=== PATIENT | male | born 1950 | race Caucasian/White ===

== ENCOUNTER 2024-08-30 19:46 | Inpatient (IN) | payer MEDICARE, BC ==
[~2024-08-30] VITALS: Ht 182.9 cm; Wt 105.5 kg
[2024-08-30] MEDS: albuterol 2.5 MG/3 ML nebule NEB ONE (20:28)
[2024-08-30 20:29] VITALS: PULSE 78; RESP 14; O2SAT 93
[2024-08-30 20:33] LABS: BASOPHILS # (AUTO) 0.1 X10'3 (0-0.2); BASOPHILS % (AUTO) 0.6 % (0-1); EOSINOPHILS # (AUTO) 0.1 X10'3 (0-0.9); EOSINOPHILS % (AUTO) 0.6 % (0-6); HEMATOCRIT 40.3 % (42.0-52.0); HEMOGLOBIN 13.4 g/dl (14.0-17.9); LYMPHOCYTES # (AUTO) 0.7 X10'3 (1.1-4.8); LYMPHOCYTES % (AUTO) 5.6 % (21-51); MEAN CORPUSCULAR HEMOGLOBIN 29.2 PG (27.0-31.0); MEAN CORPUSCULAR HGB CONC 33.2 g/dL (33.0-36.5); MEAN CORPUSCULAR VOLUME 88.1 FL (78-98); MEAN PLATELET VOLUME 8.7 FL (7.4-10.4); MONOCYTES # (AUTO) 0.9 X10'3 (0-0.9); MONOCYTES % (AUTO) 7.2 % (2-12); NEUTROPHILS # (AUTO) 10.9 X10'3 (1.8-7.7); PLATELET COUNT 340 X10'3 (140-440); RED BLOOD COUNT 4.57 X10'6 (4.70-6.10); RED CELL DISTRIBUTION WIDTH 15.7 % (11.5-14.5); WHITE BLOOD COUNT 12.6 X10'3 (4.5-11.0)
[2024-08-30 20:35] VITALS: PULSE 80; RESP 12; O2SAT 95
[2024-08-30 21:01] LABS: ALANINE AMINOTRANSFERASE 30 U/L (12-78); ALBUMIN 3.1 G/DL (3.4-5.0); ALBUMIN/GLOBULIN RATIO 0.6 (1.1-1.5); ALKALINE PHOSPHATASE 112 IU/L (46-116); ANION GAP 9 (8-16); ASPARTATE AMINO TRANSFERASE 29 U/L (10-37); BILIRUBIN,TOTAL 0.7 MG/DL (0.1-1.0); BLOOD UREA NITROGEN 16 MG/DL (7-18); CALCIUM 9.5 MG/DL (8.5-10.1); CHLORIDE 102 MMOL/L (99-107); GLUCOSE 136 MG/DL (70-104); LIPASE 29 U/L (16-77); POTASSIUM 4.4 MMOL/L (3.5-5.1); SODIUM 139 MMOL/L (135-145); TOTAL CARBON DIOXIDE 28.2 MMOL/L (24-32); TOTAL PROTEIN 8.1 G/DL (6.4-8.2); eCRCL 36 ML/MIN; eGFR 33 ML/MIN
[2024-08-30] MEDS: HYDROmorphone 1 mg/ml syringe IV ONE (21:14)
[2024-08-30 21:19] LABS: MAGNESIUM 1.9 MG/DL (1.5-2.4)
[2024-08-30] MEDS: normal saline 1000ML IV soln IVB ONE ×2 (21:19→21:49)
[2024-08-30] MEDS: metoprolol tartrate 1mg/ml inj IV ONE ×2 (21:40→22:17)
[2024-08-30] MEDS: magnesium sulf-water 2g/50mL 50 ML IV ONE (21:48)
[2024-08-30] MEDS ORDERED: metoprolol tartrate 1mg/ml inj IV SCH (22:00)
[2024-08-30] MEDS ORDERED: magnesium sulf-water 2g/50mL 50 ML IV PRN (22:10)
[2024-08-30] MEDS: amiodarone 150mg/dext, iso-os 100 ML IV ONE ×2 (22:10→22:19)
[2024-08-30] MEDS ORDERED: potassium Cl 20 mEq SR tablet PO PRN ×2 (22:10)
[2024-08-30] MEDS ORDERED: magnesium hydroxide 30ml (MOM) UD suspension PO PRN (22:10)
[2024-08-30] MEDS ORDERED: potassium Cl 40MEQ/1/2NS 520ml 520 ML IV PRN (22:10)
[2024-08-30] MEDS ORDERED: magnesium Cl slow-release 64mg tablet PO PRN (22:10)
[2024-08-30] MEDS ORDERED: magnesium sulf-water 4G/100mL 100 ML IV PRN (22:10)
[2024-08-30] MEDS ORDERED: amiodarone/D5 360MG/200ML BAG 200 ML IV ONE (22:10)
[2024-08-30] MEDS ORDERED: acetaminophen 325mg tablet PO PRN (22:10)
[2024-08-30] MEDS ORDERED: mag hydrox/Alum hydrox/simeth 30ml oral suspension PO PRN (22:10)
[2024-08-30] MEDS: amiodarone/D5 360MG/200ML BAG 200 ML IV SCH (22:35)
[2024-08-30 22:37] LABS: PRO BRAIN NATRIURETIC PEPTIDE 2467 PG/ML (0-125)
[2024-08-30] MEDS: normal saline 1000ml 1,000 ML IV SCH (22:38)
[2024-08-30] MEDS ORDERED: DIF150T PO (23:28)
[2024-08-30] MEDS ORDERED: ALBU10.7 INH (23:28)
[2024-08-30] MEDS ORDERED: ALBU10.7 (23:28)
[2024-08-30] MEDS ORDERED: METO25TA6 PO (23:28)
[2024-08-30] MEDS ORDERED: AMLO-379 PO (23:28)
[2024-08-30] MEDS ORDERED: ATOR10TA70 PO (23:28)
[2024-08-30] MEDS ORDERED: FLEC100T PO (23:28)
[2024-08-30] MEDS ORDERED: QUET100T34 PO (23:28)
[2024-08-30 23:38] LABS: BILIRUBIN,URINE NEGATIVE (Neg); CLARITY,URINE CLEAR (Clear); COLOR,URINE YELLOW (Yellow); GLUCOSE, URINE NEGATIVE (Neg); KETONES,URINE TRACE mg/dl (Neg); LEUKOCYTE ESTERASE ,URINE NEGATIVE (Neg); NITRITES, URINE NEGATIVE (Neg); OCCULT BLOOD,URINE NEGATIVE (Neg); PROTEIN,URINE TRACE mg/dl (Neg); UROBILINOGEN,URINE 0.2 E.U/dL (0.2-1.0)
[2024-08-30 23:43] LABS: UA COLLECTION TYPE URINAL
[2024-08-30 23:44] LABS: BACTERIA,URINE FEW /HPF (Neg); MUCUS STRANDS FEW /LPF (Neg); SQUAMOUS EPITHELIAL CELL,UR FEW /LPF (FEW); TRANSITIONAL EPI CELLS,URINE FEW /HPF
[2024-08-30 23:45] LABS: CAL OXALATE CRYSTALS FEW /HPF (NEGATIVE); RBC,URINE 0-2 /HPF (0-2); WBC,URINE 0-4 /HPF (0-4)
[2024-08-31] VITALS (35 sets, daily range): BP systolic 125–175; BP diastolic 69–98; PULSE 61–87; RESP 12–25; TEMP 98–98.2; O2SAT 92–100
[2024-08-31] MEDS: CEFEPIME 2gm in D5W 50mL 50 ML IV SCH ×2 (01:25→13:23)
[2024-08-31] MEDS: morphine 2 MG/ML inj. syringe IV PRN (03:01)
[2024-08-31] MEDS: ondansetron/PF 4mg/2ml inj IV PRN (03:01)
[2024-08-31] MEDS: HYDROmorphone 1 mg/ml syringe IV ONE (03:29)
[2024-08-31] MEDS: proCHLORperazine 10 MG/2 ml inj IV ONE (03:54)
[2024-08-31] MEDS: metoclopramide 5 mg/ml inj IV ONE (04:23)
[2024-08-31] MEDS: LORazepam 2 mg/ml vial IV ONE (04:50)
[2024-08-31] MEDS ORDERED: sevoflurane 250ml liquid IH ONE (05:53)
[2024-08-31] MEDS ORDERED: fentaNYL /PF 50mcg/ml 5ml ampule ONE (05:57)
[2024-08-31] MEDS ORDERED: rocuronium 10mg/ml inj IV ONE (05:59)
[2024-08-31] MEDS ORDERED: propofol inj 20 ML IV ONE (05:59)
[2024-08-31] MEDS ORDERED: ceFOXitin 1000 MG inj ONE ×2 (06:36)
[2024-08-31] MEDS ORDERED: BUPIVAcaine 2.5mg/ml inj 50ml vial (contains preservative) ONE (07:04)
[2024-08-31] MEDS ORDERED: morphine 2 MG/ML inj. syringe IV PRN (07:15)
[2024-08-31] MEDS ORDERED: ringers solution, lacted 1,000 ML IV SCH (07:15)
[2024-08-31] MEDS ORDERED: proCHLORperazine 10 MG/2 ml inj IV PRN (07:15)
[2024-08-31] MEDS ORDERED: meperidine/PF 25mg/ml syringe IV PRN ×2 (07:15)
[2024-08-31] MEDS ORDERED: ondansetron/PF 4mg/2ml inj IV PRN ×2 (07:15→08:10)
[2024-08-31] MEDS ORDERED: glycopyrrolate 0.2mg/ml inj ONE (07:28)
[2024-08-31] MEDS ORDERED: neostigmine methylsulfate 1 MG/ML 10ml vial ONE (07:28)
[2024-08-31] MEDS: BUPIVAcaine 2.5mg/ml inj 50ml vial (contains preservative) IJ ONE (07:30)
[2024-08-31] MEDS: K and/or MAG REPLACEMENT MC SCH (08:00)
[2024-08-31] MEDS: docusate sod 100mg capsule PO SCH (08:00)
[2024-08-31] MEDS: enoxaparin 30mg/0.3ml syringe SQ SCH (08:00)
[2024-08-31] MEDS ORDERED: naloxone 0.4 mg/ml inj IV PRN (08:10)
[2024-08-31] MEDS: meperidine/PF 25mg/ml syringe IV PRN (09:10)
[2024-08-31] MEDS: morphine 4 MG/ML inj SYRINge IV PRN (09:14)
[2024-08-31 14:04] LABS: BASOPHILS # (AUTO) 0.1 X10'3 (0-0.2); EOSINOPHILS # (AUTO) 0.1 X10'3 (0-0.9); LYMPHOCYTES % (AUTO) 5.8 % (21-51); PLATELET COUNT 288 X10'3 (140-440)
[2024-08-31 14:06] LABS: BASOPHILS % (AUTO) 0.5 % (0-1); EOSINOPHILS % (AUTO) 0.8 % (0-6); HEMATOCRIT 40.2 % (42.0-52.0); HEMOGLOBIN 13.2 g/dl (14.0-17.9); MEAN CORPUSCULAR HEMOGLOBIN 29.2 PG (27.0-31.0); MEAN CORPUSCULAR HGB CONC 32.9 g/dL (33.0-36.5); MEAN CORPUSCULAR VOLUME 88.9 FL (78-98); MEAN PLATELET VOLUME 9.1 FL (7.4-10.4); MONOCYTES # (AUTO) 1.6 X10'3 (0-0.9); MONOCYTES % (AUTO) 9.2 % (2-12); NEUTROPHILS # (AUTO) 14.6 X10'3 (1.8-7.7); NEUTROPHILS % (AUTO) 83.7 % (42-75); RED BLOOD COUNT 4.53 X10'6 (4.70-6.10); RED CELL DISTRIBUTION WIDTH 15.5 % (11.5-14.5); WHITE BLOOD COUNT 17.5 X10'3 (4.5-11.0)
[2024-08-31 14:47] LABS: ALANINE AMINOTRANSFERASE 30 U/L (12-78); ALBUMIN 2.6 G/DL (3.4-5.0); ALBUMIN/GLOBULIN RATIO 0.6 (1.1-1.5); ALKALINE PHOSPHATASE 108 IU/L (46-116); ANION GAP 4 (8-16); ASPARTATE AMINO TRANSFERASE 40 U/L (10-37); BILIRUBIN,TOTAL 0.3 MG/DL (0.1-1.0); BLOOD UREA NITROGEN 17 MG/DL (7-18); BUN/CREATININE RATIO 8.2 (10.0-20.0); CALCIUM 8.4 MG/DL (8.5-10.1); CHLORIDE 105 MMOL/L (99-107); CREATININE 2.07 MG/DL (0.60-1.10); GLUCOSE 123 MG/DL (70-104); POTASSIUM 4.2 MMOL/L (3.5-5.1); SODIUM 138 MMOL/L (135-145); TOTAL CARBON DIOXIDE 28.9 MMOL/L (24-32); TOTAL PROTEIN 7.1 G/DL (6.4-8.2); eCRCL 35 ML/MIN; eGFR 32 ML/MIN
[2024-08-31] MEDS ORDERED: albuterol 2.5 MG/3 ML nebule NEB PRN (16:45)
[2024-08-31] MEDS ORDERED: fluconazole 150mg tablet PO SCH (16:45)
[2024-08-31] MEDS ORDERED: budesonide 0.5mg/2ml UD nebule IH PRN (17:15)
[2024-08-31] MEDS: chlordiazePOXIDE 25mg capsule PO ONE (18:42)
[2024-08-31] MEDS: LORazepam 2 mg/ml vial IV PRN (19:35)
[2024-08-31] MEDS: metoprolol tartrate 25mg tablet PO SCH (20:00)
[2024-08-31] MEDS: flecainide 50mg tablet PO SCH (20:00)
[2024-08-31] MEDS: quetiapine 100mg tablet PO SCH (21:00)
[2024-08-31] MEDS: thiamine 100mg/ml 2ml inj. IV SCH (22:30)
[2024-09-01] VITALS (10 sets, daily range): BP systolic 148–154; BP diastolic 72–95; PULSE 63–86; RESP 15–24; TEMP 97.6–98.2; O2SAT 94–98
[2024-09-01] MEDS: metoprolol tartrate 1mg/ml inj IV ONE (00:04)
[2024-09-01] MEDS: HYDROmorphone 1 mg/ml syringe IV PRN (02:06)
[2024-09-01 07:38] LABS: BASOPHILS # (AUTO) 0.1 X10'3 (0-0.2); BASOPHILS % (AUTO) 0.5 % (0-1); EOSINOPHILS # (AUTO) 0.2 X10'3 (0-0.9); EOSINOPHILS % (AUTO) 1.4 % (0-6); HEMATOCRIT 39.6 % (42.0-52.0); HEMOGLOBIN 12.7 g/dl (14.0-17.9); LYMPHOCYTES # (AUTO) 0.9 X10'3 (1.1-4.8); MEAN CORPUSCULAR HEMOGLOBIN 28.5 PG (27.0-31.0); MEAN CORPUSCULAR HGB CONC 32.2 g/dL (33.0-36.5); MEAN CORPUSCULAR VOLUME 88.7 FL (78-98); MEAN PLATELET VOLUME 8.7 FL (7.4-10.4); MONOCYTES # (AUTO) 1.5 X10'3 (0-0.9); MONOCYTES % (AUTO) 11.8 % (2-12); NEUTROPHILS # (AUTO) 10.1 X10'3 (1.8-7.7); NEUTROPHILS % (AUTO) 79.3 % (42-75); PLATELET COUNT 264 X10'3 (140-440); RED BLOOD COUNT 4.47 X10'6 (4.70-6.10); RED CELL DISTRIBUTION WIDTH 15.6 % (11.5-14.5); WHITE BLOOD COUNT 12.7 X10'3 (4.5-11.0)
[2024-09-01 07:48] LABS: INR 1.3 INR
[2024-09-01] MEDS: LORazepam 2 mg/ml vial IV PRN (08:04)
[2024-09-01] MEDS: multivitamins, therapeutics tablet PO SCH (08:04)
[2024-09-01] MEDS: losartan 50mg tablet PO SCH (08:05)
[2024-09-01] MEDS: amLODIPine 5mg tablet PO SCH (08:05)
[2024-09-01] MEDS: folic acid 1mg/0.2ml inj IV SCH (08:07)
[2024-09-01] MEDS: atorvastatin 10mg tablet PO SCH (08:07)
[2024-09-01 08:34] LABS: ALANINE AMINOTRANSFERASE 35 U/L (12-78); ALBUMIN 2.7 G/DL (3.4-5.0); ALBUMIN/GLOBULIN RATIO 0.6 (1.1-1.5); ALKALINE PHOSPHATASE 96 IU/L (46-116); AMYLASE 22 U/L (25-115); ANION GAP 8 (8-16); ASPARTATE AMINO TRANSFERASE 35 U/L (10-37); BILIRUBIN,TOTAL 0.6 MG/DL (0.1-1.0); BLOOD UREA NITROGEN 18 MG/DL (7-18); CALCIUM 8.3 MG/DL (8.5-10.1); CHLORIDE 104 MMOL/L (99-107); CREATININE 2.01 MG/DL (0.60-1.10); GLUCOSE 97 MG/DL (70-104); LIPASE 20 U/L (16-77); MAGNESIUM 1.7 MG/DL (1.5-2.4); PHOSPHORUS 3.2 MG/DL (2.3-4.5); POTASSIUM 3.8 MMOL/L (3.5-5.1); SODIUM 138 MMOL/L (135-145); TOTAL CARBON DIOXIDE 26.4 MMOL/L (24-32); TOTAL PROTEIN 7.2 G/DL (6.4-8.2); eCRCL 36 ML/MIN; eGFR 33 ML/MIN
[2024-09-01 09:10] LABS: SODIUM 142 MMOL/L (135-145)
[2024-09-01 09:12] LABS: OSMOLALITY 302 MOSM/K (280-300)
[2024-09-01] MEDS: chlordiazePOXIDE 25mg capsule PO SCH (10:44)
[2024-09-02] VITALS (10 sets, daily range): BP systolic 105–160; BP diastolic 60–67; PULSE 70–102; RESP 15–20; TEMP 97.5–98.3; O2SAT 92–100
[2024-09-02 08:05] LABS: INR 1.3 INR; PROTHROMBIN TIME 12.9 SECONDS (9.0-12.0)
[2024-09-02] MEDS: chlordiazePOXIDE 25mg capsule PO SCH (09:25)
[2024-09-02 09:33] LABS: BASOPHILS # (AUTO) 0.1 X10'3 (0-0.2); BASOPHILS % (AUTO) 0.5 % (0-1); EOSINOPHILS # (AUTO) 0.5 X10'3 (0-0.9); EOSINOPHILS % (AUTO) 4.3 % (0-6); HEMATOCRIT 39.6 % (42.0-52.0); HEMOGLOBIN 12.9 g/dl (14.0-17.9); LYMPHOCYTES # (AUTO) 0.8 X10'3 (1.1-4.8); LYMPHOCYTES % (AUTO) 7.5 % (21-51); MEAN CORPUSCULAR HEMOGLOBIN 28.9 PG (27.0-31.0); MEAN CORPUSCULAR HGB CONC 32.7 g/dL (33.0-36.5); MEAN CORPUSCULAR VOLUME 88.2 FL (78-98); MEAN PLATELET VOLUME 9.5 FL (7.4-10.4); MONOCYTES # (AUTO) 1.2 X10'3 (0-0.9); MONOCYTES % (AUTO) 11.4 % (2-12); NEUTROPHILS # (AUTO) 8.4 X10'3 (1.8-7.7); NEUTROPHILS % (AUTO) 76.3 % (42-75); PLATELET COUNT 212 X10'3 (140-440); RED BLOOD COUNT 4.49 X10'6 (4.70-6.10); RED CELL DISTRIBUTION WIDTH 15.8 % (11.5-14.5)
[2024-09-02 09:41] LABS: ALANINE AMINOTRANSFERASE 24 U/L (12-78); ALBUMIN 2.3 G/DL (3.4-5.0); ALBUMIN/GLOBULIN RATIO 0.5 (1.1-1.5); ALKALINE PHOSPHATASE 111 IU/L (46-116); AMYLASE 30 U/L (25-115); ANION GAP 7 (8-16); ASPARTATE AMINO TRANSFERASE 22 U/L (10-37); BILIRUBIN,TOTAL 0.6 MG/DL (0.1-1.0); BLOOD UREA NITROGEN 19 MG/DL (7-18); BUN/CREATININE RATIO 12.1 (10.0-20.0); CALCIUM 8.7 MG/DL (8.5-10.1); CHLORIDE 107 MMOL/L (99-107); CREATININE 1.57 MG/DL (0.60-1.10); GLUCOSE 72 MG/DL (70-104); LIPASE 57 U/L (16-77); MAGNESIUM 1.8 MG/DL (1.5-2.4); PHOSPHORUS 2.8 MG/DL (2.3-4.5); POTASSIUM 3.8 MMOL/L (3.5-5.1); SODIUM 142 MMOL/L (135-145); TOTAL CARBON DIOXIDE 28.4 MMOL/L (24-32); TOTAL PROTEIN 6.8 G/DL (6.4-8.2); eCRCL 46 ML/MIN; eGFR 44 ML/MIN
[2024-09-02] MEDS: dextrose 5%-1/2 normal saline 1,000 ML IV SCH (11:59)
[2024-09-02] MEDS ORDERED: heparin, porcine 5000 units/ml vial SQ SCH (14:15)
[2024-09-02] MEDS: haloperidol lactate 5mg/ml inj IM PRN (22:33)
[2024-09-02] MEDS: apixaban 5mg tablet PO SCH (22:37)
[2024-09-03] VITALS (10 sets, daily range): BP systolic 98–179; BP diastolic 50–79; PULSE 67–83; RESP 18–20; TEMP 97.6–98.6; O2SAT 93–100
[2024-09-03 06:52] LABS: BASOPHILS % (AUTO) 0.3 % (0-1); EOSINOPHILS % (AUTO) 0.3 % (0-6); HEMATOCRIT 32.4 % (42.0-52.0); HEMOGLOBIN 10.5 g/dl (14.0-17.9); LYMPHOCYTES # (AUTO) 0.3 X10'3 (1.1-4.8); LYMPHOCYTES % (AUTO) 3.5 % (21-51); MEAN CORPUSCULAR HGB CONC 32.4 g/dL (33.0-36.5); MEAN CORPUSCULAR VOLUME 89.5 FL (78-98); MEAN PLATELET VOLUME 9.4 FL (7.4-10.4); MONOCYTES # (AUTO) 0.9 X10'3 (0-0.9); MONOCYTES % (AUTO) 10.1 % (2-12); NEUTROPHILS % (AUTO) 85.8 % (42-75); PLATELET COUNT 187 X10'3 (140-440); RED BLOOD COUNT 3.62 X10'6 (4.70-6.10); RED CELL DISTRIBUTION WIDTH 15.6 % (11.5-14.5); WHITE BLOOD COUNT 9.3 X10'3 (4.5-11.0)
[2024-09-03 07:01] LABS: INR 1.3 INR; PROTHROMBIN TIME 12.9 SECONDS (9.0-12.0)
[2024-09-03 07:13] LABS: ALANINE AMINOTRANSFERASE 16 U/L (12-78); ALBUMIN 2.1 G/DL (3.4-5.0); ALBUMIN/GLOBULIN RATIO 0.5 (1.1-1.5); ALKALINE PHOSPHATASE 88 IU/L (46-116); AMYLASE 30 U/L (25-115); ANION GAP 5 (8-16); ASPARTATE AMINO TRANSFERASE 21 U/L (10-37); BILIRUBIN,TOTAL 0.3 MG/DL (0.1-1.0); BLOOD UREA NITROGEN 22 MG/DL (7-18); BUN/CREATININE RATIO 11.5 (10.0-20.0); CALCIUM 8.2 MG/DL (8.5-10.1); CHLORIDE 105 MMOL/L (99-107); CREATININE 1.91 MG/DL (0.60-1.10); GLUCOSE 202 MG/DL (70-104); LIPASE 32 U/L (16-77); MAGNESIUM 1.9 MG/DL (1.5-2.4); PHOSPHORUS 5.7 MG/DL (2.3-4.5); POTASSIUM 4.2 MMOL/L (3.5-5.1); SODIUM 138 MMOL/L (135-145); TOTAL CARBON DIOXIDE 28.4 MMOL/L (24-32); TOTAL PROTEIN 6.2 G/DL (6.4-8.2); eCRCL 38 ML/MIN; eGFR 35 ML/MIN
[2024-09-03] MEDS: heparin, porcine 5000 units/ml vial SQ SCH ×2 (09:24→16:55)
[2024-09-03] MEDS ORDERED: acetaminophen 325mg tablet NG PRN (15:16)
[2024-09-03] MEDS ORDERED: magnesium hydroxide 30ml (MOM) UD suspension NG PRN (15:18)
[2024-09-03] MEDS ORDERED: mag hydrox/Alum hydrox/simeth 30ml oral suspension NG PRN (15:18)
[2024-09-03 15:57] LABS: PREALBUMIN 9.9 MG/DL (19-36)
[2024-09-03] MEDS: chlordiazePOXIDE 25mg capsule NG SCH (16:55)
[2024-09-03] MEDS: dextrose 5%-1/2 normal saline 1,000 ML IV SCH (16:55)
[2024-09-03] MEDS: docusate sodium 100mg/10ml UD cup NG SCH (20:49)
[2024-09-03] MEDS: flecainide 50mg tablet NG SCH (20:50)
[2024-09-03] MEDS: metoprolol tartrate 25mg tablet NG SCH (20:51)
[2024-09-03] MEDS: nystatin 15 GM powder TP SCH (21:09)
[2024-09-04] VITALS (12 sets, daily range): BP systolic 98–172; BP diastolic 57–109; PULSE 58–136; RESP 15–27; TEMP 97.2–98.5; O2SAT 94–98
[2024-09-04] MEDS: HYDROcodone/acetaminophen 10/325mg tab PO ONE (02:02)
[2024-09-04 07:35] LABS: INR 1.3 INR; PROTHROMBIN TIME 13.6 SECONDS (9.0-12.0)
[2024-09-04] MEDS: losartan 50mg tablet NG SCH (07:45)
[2024-09-04] MEDS: atorvastatin 10mg tablet NG SCH (07:45)
[2024-09-04] MEDS: thiamine 100mg tablet NG SCH (07:45)
[2024-09-04] MEDS: amLODIPine 5mg tablet NG SCH (07:45)
[2024-09-04] MEDS: chlordiazePOXIDE 25mg capsule NG SCH (07:46)
[2024-09-04 07:47] LABS: ALANINE AMINOTRANSFERASE 15 U/L (12-78); ALBUMIN 1.9 G/DL (3.4-5.0); ALBUMIN/GLOBULIN RATIO 0.5 (1.1-1.5); ALKALINE PHOSPHATASE 80 IU/L (46-116); AMYLASE 25 U/L (25-115); ANION GAP 5 (8-16); ASPARTATE AMINO TRANSFERASE 24 U/L (10-37); BILIRUBIN,TOTAL 0.3 MG/DL (0.1-1.0); BLOOD UREA NITROGEN 18 MG/DL (7-18); BUN/CREATININE RATIO 12.4 (10.0-20.0); CALCIUM 8.1 MG/DL (8.5-10.1); CHLORIDE 106 MMOL/L (99-107); CREATININE 1.45 MG/DL (0.60-1.10); GLUCOSE 89 MG/DL (70-104); LIPASE 30 U/L (16-77); MAGNESIUM 1.6 MG/DL (1.5-2.4); PHOSPHORUS 1.9 MG/DL (2.3-4.5); POTASSIUM 3.2 MMOL/L (3.5-5.1); SODIUM 139 MMOL/L (135-145); TOTAL CARBON DIOXIDE 27.8 MMOL/L (24-32); TOTAL PROTEIN 6.1 G/DL (6.4-8.2); eCRCL 50 ML/MIN; eGFR 48 ML/MIN
[2024-09-04 08:08] LABS: BASOPHILS % (AUTO) 0.7 % (0-1); EOSINOPHILS # (AUTO) 0.6 X10'3 (0-0.9); EOSINOPHILS % (AUTO) 8.7 % (0-6); HEMATOCRIT 32.2 % (42.0-52.0); HEMOGLOBIN 10.6 g/dl (14.0-17.9); LYMPHOCYTES % (AUTO) 15.6 % (21-51); MEAN CORPUSCULAR HEMOGLOBIN 28.9 PG (27.0-31.0); MEAN CORPUSCULAR HGB CONC 32.9 g/dL (33.0-36.5); MEAN CORPUSCULAR VOLUME 87.7 FL (78-98); MEAN PLATELET VOLUME 9.8 FL (7.4-10.4); MONOCYTES # (AUTO) 0.7 X10'3 (0-0.9); MONOCYTES % (AUTO) 10.7 % (2-12); NEUTROPHILS # (AUTO) 4.1 X10'3 (1.8-7.7); NEUTROPHILS % (AUTO) 64.3 % (42-75); PLATELET COUNT 203 X10'3 (140-440); RED BLOOD COUNT 3.67 X10'6 (4.70-6.10); RED CELL DISTRIBUTION WIDTH 15.7 % (11.5-14.5); WHITE BLOOD COUNT 6.3 X10'3 (4.5-11.0)
[2024-09-04] MEDS: LORazepam 2 mg/ml vial IV PRN (12:10)
[2024-09-04 12:29] LABS: URINE AMPHETAMINE SCREEN NEGATIVE (Neg); URINE BARBITUATE SCREEN NEGATIVE (Neg); URINE BENZODIAZEPINES SCREEN POSITIVE (Neg); URINE CANNABINOID SCREEN NEGATIVE (Neg); URINE COCAINE SCREEN NEGATIVE (Neg); URINE METHADONE SCREEN NEGATIVE (Neg); URINE OPIATE SCREEN POSITIVE (Neg); URINE PHENCYCLIDINE SCREEN NEGATIVE (Neg)
[2024-09-04] MEDS ORDERED: potassium Cl 40MEQ/1/2NS 520ml 520 ML IV PRN (15:10)
[2024-09-04] MEDS: Neutra Phos packet PO SCH (16:45)
[2024-09-04] MEDS: HYDROmorphone inj. 0.5 MG/0.5 ML DISP.SYRIN IV ONE (16:45)
[2024-09-04] MEDS: potassium Cl 20 mEq SR tablet PO PRN ×2 (16:45→20:38)
[2024-09-04] MEDS ORDERED: amiodarone 50MG/ML inj IV ONE (17:25)
[2024-09-04] MEDS: amiodarone 150mg/dext, iso-os 100 ML IV ONE (17:36)
[2024-09-04] MEDS ORDERED: amiodarone inj. 450 MG in dextrose 5%-water 241 ML IV SCH (17:40)
[2024-09-04] MEDS ORDERED: iohexol 350MG/ML 100ml bottle IV ONE (19:03)
[2024-09-04] MEDS ORDERED: sodium phosphate inj. 30 MMOL in dextrose 5%-water 250 ML IV PRN (19:50)
[2024-09-04] MEDS ORDERED: sodium phosphate inj. 15 MMOL in dextrose 5%-water 250 ML IV PRN (19:50)
[2024-09-04] MEDS ORDERED: Neutra Phos packet PO PRN (19:50)
[2024-09-04] MEDS ORDERED: chlordiazePOXIDE 5mg capsule NG SCH (20:00)
[2024-09-04] MEDS: amiodarone/D5 360MG/200ML BAG 250 ML IV SCH (20:24)
[2024-09-05] VITALS (14 sets, daily range): BP systolic 101–194; BP diastolic 67–95; PULSE 60–79; RESP 16–37; TEMP 97.9–99.2; O2SAT 95–99
[2024-09-05] MEDS: hydrALAZINE 20mg/ml inj. IV PRN (02:12)
[2024-09-05 07:26] LABS: INR 1.5 INR; PROTHROMBIN TIME 15.1 SECONDS (9.0-12.0)
[2024-09-05 07:42] LABS: BASOPHILS # (AUTO) 0.1 X10'3 (0-0.2); BASOPHILS % (AUTO) 0.7 % (0-1); EOSINOPHILS # (AUTO) 0.4 X10'3 (0-0.9); EOSINOPHILS % (AUTO) 3.9 % (0-6); HEMATOCRIT 38.9 % (42.0-52.0); HEMOGLOBIN 12.8 g/dl (14.0-17.9); LYMPHOCYTES # (AUTO) 1.1 X10'3 (1.1-4.8); LYMPHOCYTES % (AUTO) 11.9 % (21-51); MEAN CORPUSCULAR HEMOGLOBIN 28.6 PG (27.0-31.0); MEAN CORPUSCULAR VOLUME 86.8 FL (78-98); MEAN PLATELET VOLUME 9.5 FL (7.4-10.4); MONOCYTES # (AUTO) 1.1 X10'3 (0-0.9); NEUTROPHILS # (AUTO) 6.7 X10'3 (1.8-7.7); NEUTROPHILS % (AUTO) 71.5 % (42-75); PLATELET COUNT 289 X10'3 (140-440); RED BLOOD COUNT 4.48 X10'6 (4.70-6.10); RED CELL DISTRIBUTION WIDTH 15.3 % (11.5-14.5); WHITE BLOOD COUNT 9.4 X10'3 (4.5-11.0)
[2024-09-05] MEDS: folic acid 1mg tablet NG SCH (07:46)
[2024-09-05 07:52] LABS: ALANINE AMINOTRANSFERASE 28 U/L (12-78); ALBUMIN 2.5 G/DL (3.4-5.0); ALBUMIN/GLOBULIN RATIO 0.5 (1.1-1.5); ALKALINE PHOSPHATASE 95 IU/L (46-116); AMYLASE 25 U/L (25-115); ANION GAP 7 (8-16); ASPARTATE AMINO TRANSFERASE 35 U/L (10-37); BILIRUBIN,TOTAL 0.3 MG/DL (0.1-1.0); BLOOD UREA NITROGEN 11 MG/DL (7-18); CALCIUM 8.5 MG/DL (8.5-10.1); CHLORIDE 102 MMOL/L (99-107); CREATININE 1.38 MG/DL (0.60-1.10); GLUCOSE 131 MG/DL (70-104); LIPASE 35 U/L (16-77); MAGNESIUM 1.6 MG/DL (1.5-2.4); PHOSPHORUS 2.1 MG/DL (2.3-4.5); POTASSIUM 3.4 MMOL/L (3.5-5.1); SODIUM 139 MMOL/L (135-145); TOTAL CARBON DIOXIDE 29.9 MMOL/L (24-32); TOTAL PROTEIN 7.2 G/DL (6.4-8.2); eCRCL 52 ML/MIN; eGFR 51 ML/MIN
[2024-09-05] MEDS: normal saline 1000ml 1,000 ML IV ONE (11:14)
[2024-09-05] MEDS ORDERED: Neutra Phos packet NG PRN (17:28)
[2024-09-05] MEDS ORDERED: POTASSIUM CHLORIDE 20 MEQ/15 ML oral solution NG PRN (17:29)
[2024-09-05] MEDS: Neutra Phos packet NG SCH (20:50)
[2024-09-05] MEDS: POTASSIUM CHLORIDE 20 MEQ/15 ML oral solution NG PRN (21:20)
[2024-09-06] VITALS (10 sets, daily range): BP systolic 114–183; BP diastolic 57–96; PULSE 70–79; RESP 17–21; TEMP 97.6–98.7; O2SAT 95–99
[2024-09-06] MEDS ORDERED: hydrALAZINE 20mg/ml inj. IV ONE (04:00)
[2024-09-06] MEDS: hydrALAZINE 20mg/ml inj. IV PRN (04:46)
[2024-09-06 06:50] LABS: BASOPHILS # (AUTO) 0.1 X10'3 (0-0.2); BASOPHILS % (AUTO) 0.8 % (0-1); EOSINOPHILS # (AUTO) 0.5 X10'3 (0-0.9); EOSINOPHILS % (AUTO) 4.5 % (0-6); HEMATOCRIT 37.2 % (42.0-52.0); HEMOGLOBIN 12.3 g/dl (14.0-17.9); LYMPHOCYTES # (AUTO) 1.2 X10'3 (1.1-4.8); LYMPHOCYTES % (AUTO) 11.6 % (21-51); MEAN CORPUSCULAR HEMOGLOBIN 28.5 PG (27.0-31.0); MEAN CORPUSCULAR VOLUME 86.3 FL (78-98); MEAN PLATELET VOLUME 9.9 FL (7.4-10.4); MONOCYTES # (AUTO) 1.2 X10'3 (0-0.9); MONOCYTES % (AUTO) 11.8 % (2-12); NEUTROPHILS # (AUTO) 7.4 X10'3 (1.8-7.7); NEUTROPHILS % (AUTO) 71.3 % (42-75); PLATELET COUNT 267 X10'3 (140-440); RED BLOOD COUNT 4.31 X10'6 (4.70-6.10); RED CELL DISTRIBUTION WIDTH 15.1 % (11.5-14.5); WHITE BLOOD COUNT 10.5 X10'3 (4.5-11.0)
[2024-09-06 07:36] LABS: PREALBUMIN 11.3 MG/DL (19-36)
[2024-09-06] MEDS: amLODIPine 5mg tablet NG SCH (08:49)
[2024-09-06] MEDS: MULTIVIT-MIN/FERROUS GLUCONATE 9 MG/15 ML LIQUID NG SCH (08:49)
[2024-09-06] MEDS: HYDROcodone/acetaminophen 5mg/325mg tablet PO PRN (08:50)
[2024-09-06 09:17] LABS: ALANINE AMINOTRANSFERASE 27 U/L (12-78); ALBUMIN 2.4 G/DL (3.4-5.0); ALBUMIN/GLOBULIN RATIO 0.5 (1.1-1.5); ALKALINE PHOSPHATASE 92 IU/L (46-116); ANION GAP 9 (8-16); ASPARTATE AMINO TRANSFERASE 33 U/L (10-37); BILIRUBIN,TOTAL 0.5 MG/DL (0.1-1.0); BLOOD UREA NITROGEN 8 MG/DL (7-18); BUN/CREATININE RATIO 6.3 (10.0-20.0); CALCIUM 8.7 MG/DL (8.5-10.1); CHLORIDE 105 MMOL/L (99-107); CREATININE 1.26 MG/DL (0.60-1.10); GLUCOSE 106 MG/DL (70-104); POTASSIUM 3.5 MMOL/L (3.5-5.1); SODIUM 142 MMOL/L (135-145); TOTAL CARBON DIOXIDE 28.4 MMOL/L (24-32); eCRCL 57 ML/MIN; eGFR 56 ML/MIN
[2024-09-06] MEDS: metoclopramide 5 mg/ml inj IV ONE (10:29)
[2024-09-06] MEDS: nystatin 15 GM powder TP SCH (13:25)
[2024-09-06] MEDS ORDERED: HYDROcodone/acetaminophen 7.5MG/325MG per 15ml UD CUP PO PRN (14:33)
[2024-09-07] VITALS (10 sets, daily range): BP systolic 131–171; BP diastolic 36–87; PULSE 65–79; RESP 12–24; TEMP 97.3–97.9; O2SAT 95–100
[2024-09-07 07:18] LABS: BASOPHILS % (AUTO) 0.3 % (0-1); EOSINOPHILS # (AUTO) 0.4 X10'3 (0-0.9); EOSINOPHILS % (AUTO) 4.2 % (0-6); HEMATOCRIT 37.2 % (42.0-52.0); HEMOGLOBIN 12.5 g/dl (14.0-17.9); LYMPHOCYTES # (AUTO) 0.9 X10'3 (1.1-4.8); LYMPHOCYTES % (AUTO) 9.5 % (21-51); MEAN CORPUSCULAR HEMOGLOBIN 29.1 PG (27.0-31.0); MEAN CORPUSCULAR HGB CONC 33.6 g/dL (33.0-36.5); MEAN CORPUSCULAR VOLUME 86.6 FL (78-98); MEAN PLATELET VOLUME 9.9 FL (7.4-10.4); MONOCYTES # (AUTO) 1.1 X10'3 (0-0.9); MONOCYTES % (AUTO) 11.7 % (2-12); NEUTROPHILS # (AUTO) 7.3 X10'3 (1.8-7.7); NEUTROPHILS % (AUTO) 74.3 % (42-75); PLATELET COUNT 285 X10'3 (140-440); RED CELL DISTRIBUTION WIDTH 15.3 % (11.5-14.5); WHITE BLOOD COUNT 9.8 X10'3 (4.5-11.0)
[2024-09-07 08:29] LABS: ALANINE AMINOTRANSFERASE 23 U/L (12-78); ALBUMIN 2.4 G/DL (3.4-5.0); ALBUMIN/GLOBULIN RATIO 0.5 (1.1-1.5); ALKALINE PHOSPHATASE 86 IU/L (46-116); ANION GAP 6 (8-16); ASPARTATE AMINO TRANSFERASE 31 U/L (10-37); BILIRUBIN,TOTAL 0.5 MG/DL (0.1-1.0); BLOOD UREA NITROGEN 12 MG/DL (7-18); BUN/CREATININE RATIO 9.1 (10.0-20.0); CALCIUM 8.6 MG/DL (8.5-10.1); CHLORIDE 101 MMOL/L (99-107); CREATININE 1.32 MG/DL (0.60-1.10); GLUCOSE 145 MG/DL (70-104); POTASSIUM 3.5 MMOL/L (3.5-5.1); SODIUM 138 MMOL/L (135-145); TOTAL CARBON DIOXIDE 30.6 MMOL/L (24-32); eCRCL 55 ML/MIN; eGFR 53 ML/MIN
[2024-09-07] MEDS: HYDROcodone/acetaminophen 7.5MG/325MG per 15ml UD CUP NG PRN (08:40)
[2024-09-07] MEDS: lactulose 20gm/30ml cup PO SCH (15:35)
[2024-09-07] MEDS: apixaban 5mg tablet PO SCH (20:27)
[2024-09-08 02:00] VITALS: BP_SYST 144; BP_SYST 165; BP_DIAS 67; BP_DIAS 74; PULSE 73; RESP 17; TEMP 97.7; O2SAT 97
[2024-09-08 06:30] VITALS: O2SAT 95
[2024-09-08 08:00] VITALS: BP 105/52; PULSE 60; RESP 18; TEMP 98; O2SAT 97
[2024-09-08 08:02] LABS: BASOPHILS % (AUTO) 0.5 % (0-1); EOSINOPHILS # (AUTO) 0.6 X10'3 (0-0.9); EOSINOPHILS % (AUTO) 6.8 % (0-6); HEMATOCRIT 35.3 % (42.0-52.0); HEMOGLOBIN 11.8 g/dl (14.0-17.9); MEAN CORPUSCULAR HEMOGLOBIN 29.2 PG (27.0-31.0); MEAN CORPUSCULAR HGB CONC 33.5 g/dL (33.0-36.5); MEAN CORPUSCULAR VOLUME 87.1 FL (78-98); MEAN PLATELET VOLUME 9.7 FL (7.4-10.4); MONOCYTES # (AUTO) 1.3 X10'3 (0-0.9); MONOCYTES % (AUTO) 15.2 % (2-12); NEUTROPHILS # (AUTO) 5.8 X10'3 (1.8-7.7); NEUTROPHILS % (AUTO) 66.5 % (42-75); PLATELET COUNT 284 X10'3 (140-440); RED BLOOD COUNT 4.05 X10'6 (4.70-6.10); RED CELL DISTRIBUTION WIDTH 15.5 % (11.5-14.5); WHITE BLOOD COUNT 8.8 X10'3 (4.5-11.0)
[2024-09-08 08:17] LABS: ALANINE AMINOTRANSFERASE 23 U/L (12-78); ALBUMIN 2.3 G/DL (3.4-5.0); ALBUMIN/GLOBULIN RATIO 0.5 (1.1-1.5); ALKALINE PHOSPHATASE 78 IU/L (46-116); ANION GAP 3 (8-16); ASPARTATE AMINO TRANSFERASE 30 U/L (10-37); BILIRUBIN,TOTAL 0.4 MG/DL (0.1-1.0); BLOOD UREA NITROGEN 16 MG/DL (7-18); BUN/CREATININE RATIO 11.9 (10.0-20.0); CALCIUM 8.5 MG/DL (8.5-10.1); CHLORIDE 105 MMOL/L (99-107); CREATININE 1.35 MG/DL (0.60-1.10); GLUCOSE 131 MG/DL (70-104); POTASSIUM 3.8 MMOL/L (3.5-5.1); SODIUM 142 MMOL/L (135-145); TOTAL CARBON DIOXIDE 34.3 MMOL/L (24-32); TOTAL PROTEIN 6.6 G/DL (6.4-8.2); eCRCL 53 ML/MIN; eGFR 52 ML/MIN
[2024-09-08 08:22] LABS: ABG HCO3 32.3 mmol/L (21.0-28.0); ABG OXYGEN SATURATION 96.6 % (94.0-98.0); ABG PCO2 (T) 43.2 mmHg (35.0-48.0); ABG PH (T) 7.491 (7.350-7.450); ABG PO2 (T) 79.1 mmHg (83.0-108.0); ALLEN'S TEST POSITIVE; FCOHb 0.3 % (0.5-1.5); FHHb 3.4 % (0.0-5.0); FLOW 2 L/min; FMetHb 0.3 % (0.0-1.5); MODE NC; PATIENT TEMPERATURE 36.7; TOTAL HEMOGLOBIN 13.2 G/dl (13.5-17.5)
[2024-09-08 08:30] VITALS: RESP 18; O2SAT 97
[2024-09-08 08:53] LABS: HIV ANTIBODY 1&2 RAPID NON-REACTIVE (Neg)
[2024-09-08 08:57] LABS: URINE AMPHETAMINE SCREEN NEGATIVE (Neg); URINE BARBITUATE SCREEN NEGATIVE (Neg); URINE BENZODIAZEPINES SCREEN POSITIVE (Neg); URINE CANNABINOID SCREEN NEGATIVE (Neg); URINE COCAINE SCREEN NEGATIVE (Neg); URINE METHADONE SCREEN NEGATIVE (Neg); URINE OPIATE SCREEN POSITIVE (Neg); URINE PHENCYCLIDINE SCREEN NEGATIVE (Neg)
[2024-09-08 18:00] VITALS: BP_SYST 105; BP_SYST 140; BP_DIAS 52; BP_DIAS 64; PULSE 56; PULSE 66; RESP 16; RESP 19; TEMP 97.8; TEMP 98.6; O2SAT 96; O2SAT 98
[2024-09-08 22:00] VITALS: BP 130/71; PULSE 56; RESP 16; TEMP 98.6; O2SAT 96
[2024-09-09] VITALS (11 sets, daily range): BP systolic 144–155; BP diastolic 65–85; PULSE 57–135; RESP 10–22; TEMP 97.8–98.6; O2SAT 95–99
[2024-09-09 06:09] LABS: BASOPHILS # (AUTO) 0.1 X10'3 (0-0.2); BASOPHILS % (AUTO) 0.9 % (0-1); EOSINOPHILS # (AUTO) 0.7 X10'3 (0-0.9); EOSINOPHILS % (AUTO) 8.3 % (0-6); HEMATOCRIT 36.2 % (42.0-52.0); HEMOGLOBIN 11.9 g/dl (14.0-17.9); LYMPHOCYTES # (AUTO) 1.4 X10'3 (1.1-4.8); LYMPHOCYTES % (AUTO) 16.6 % (21-51); MEAN CORPUSCULAR HEMOGLOBIN 28.6 PG (27.0-31.0); MEAN CORPUSCULAR HGB CONC 32.8 g/dL (33.0-36.5); MEAN CORPUSCULAR VOLUME 87.3 FL (78-98); MEAN PLATELET VOLUME 9.9 FL (7.4-10.4); MONOCYTES # (AUTO) 1.1 X10'3 (0-0.9); MONOCYTES % (AUTO) 13.9 % (2-12); NEUTROPHILS % (AUTO) 60.3 % (42-75); PLATELET COUNT 280 X10'3 (140-440); RED BLOOD COUNT 4.15 X10'6 (4.70-6.10); RED CELL DISTRIBUTION WIDTH 15.9 % (11.5-14.5); WHITE BLOOD COUNT 8.3 X10'3 (4.5-11.0)
[2024-09-09 06:11] LABS: ALANINE AMINOTRANSFERASE 24 U/L (12-78); ALBUMIN 2.4 G/DL (3.4-5.0); ALBUMIN/GLOBULIN RATIO 0.5 (1.1-1.5); ALKALINE PHOSPHATASE 81 IU/L (46-116); ANION GAP 4 (8-16); ASPARTATE AMINO TRANSFERASE 26 U/L (10-37); BILIRUBIN,TOTAL 0.4 MG/DL (0.1-1.0); BLOOD UREA NITROGEN 16 MG/DL (7-18); BUN/CREATININE RATIO 12.8 (10.0-20.0); CALCIUM 8.6 MG/DL (8.5-10.1); CHLORIDE 105 MMOL/L (99-107); CREATININE 1.25 MG/DL (0.60-1.10); GLUCOSE 121 MG/DL (70-104); SODIUM 142 MMOL/L (135-145); TOTAL CARBON DIOXIDE 33.1 MMOL/L (24-32); TOTAL PROTEIN 6.9 G/DL (6.4-8.2); eCRCL 58 ML/MIN; eGFR 57 ML/MIN
[2024-09-09] MEDS ORDERED: albuterol 2.5 MG/3 ML nebule NEB PRN (13:55)
[2024-09-10] VITALS (18 sets, daily range): BP systolic 97–169; BP diastolic 66–87; PULSE 55–117; RESP 16–20; TEMP 97.7–98.3; O2SAT 91–100
[2024-09-10 06:39] LABS: BASOPHILS # (AUTO) 0.1 X10'3 (0-0.2); EOSINOPHILS # (AUTO) 0.7 X10'3 (0-0.9); EOSINOPHILS % (AUTO) 7.9 % (0-6); HEMATOCRIT 37.4 % (42.0-52.0); HEMOGLOBIN 12.2 g/dl (14.0-17.9); LYMPHOCYTES # (AUTO) 1.3 X10'3 (1.1-4.8); LYMPHOCYTES % (AUTO) 13.9 % (21-51); MEAN CORPUSCULAR HEMOGLOBIN 28.3 PG (27.0-31.0); MEAN CORPUSCULAR HGB CONC 32.5 g/dL (33.0-36.5); MEAN CORPUSCULAR VOLUME 87.1 FL (78-98); MEAN PLATELET VOLUME 9.4 FL (7.4-10.4); MONOCYTES # (AUTO) 1.3 X10'3 (0-0.9); MONOCYTES % (AUTO) 13.7 % (2-12); NEUTROPHILS # (AUTO) 5.9 X10'3 (1.8-7.7); NEUTROPHILS % (AUTO) 63.5 % (42-75); PLATELET COUNT 257 X10'3 (140-440); WHITE BLOOD COUNT 9.2 X10'3 (4.5-11.0)
[2024-09-10 06:47] LABS: ALANINE AMINOTRANSFERASE 29 U/L (12-78); ALBUMIN 2.7 G/DL (3.4-5.0); ALBUMIN/GLOBULIN RATIO 0.6 (1.1-1.5); ALKALINE PHOSPHATASE 80 IU/L (46-116); ANION GAP 3 (8-16); ASPARTATE AMINO TRANSFERASE 34 U/L (10-37); BILIRUBIN,TOTAL 0.5 MG/DL (0.1-1.0); BLOOD UREA NITROGEN 17 MG/DL (7-18); BUN/CREATININE RATIO 13.2 (10.0-20.0); CALCIUM 8.8 MG/DL (8.5-10.1); CHLORIDE 101 MMOL/L (99-107); CREATININE 1.29 MG/DL (0.60-1.10); GLUCOSE 104 MG/DL (70-104); POTASSIUM 4.2 MMOL/L (3.5-5.1); PREALBUMIN 16.6 MG/DL (19-36); SODIUM 139 MMOL/L (135-145); TOTAL CARBON DIOXIDE 35.2 MMOL/L (24-32); TOTAL PROTEIN 7.2 G/DL (6.4-8.2); eCRCL 56 ML/MIN; eGFR 55 ML/MIN
[2024-09-10] MEDS ORDERED: amiodarone 50MG/ML inj IV ONE (09:00)
[2024-09-10] MEDS ORDERED: amiodarone inj. 450 MG in dextrose 5%-water 241 ML IV SCH (09:00)
[2024-09-10] MEDS: amiodarone 150mg/dext, iso-os 100 ML IV ONE (10:39)
[2024-09-10] MEDS: amiodarone/D5 360MG/200ML BAG 200 ML IV SCH (11:16)
[2024-09-11] VITALS (12 sets, daily range): BP systolic 105–138; BP diastolic 47–68; PULSE 52–63; RESP 15–21; TEMP 96.7–98.6; O2SAT 92–100
[2024-09-11] MEDS: LORazepam 2 mg/ml vial IV ONE (05:09)
[2024-09-11 07:45] LABS: ALANINE AMINOTRANSFERASE 40 U/L (12-78); ALBUMIN 2.6 G/DL (3.4-5.0); ALBUMIN/GLOBULIN RATIO 0.6 (1.1-1.5); ALKALINE PHOSPHATASE 76 IU/L (46-116); ANION GAP 4 (8-16); ASPARTATE AMINO TRANSFERASE 43 U/L (10-37); BILIRUBIN,TOTAL 0.4 MG/DL (0.1-1.0); BLOOD UREA NITROGEN 18 MG/DL (7-18); BUN/CREATININE RATIO 12.6 (10.0-20.0); CALCIUM 8.5 MG/DL (8.5-10.1); CHLORIDE 101 MMOL/L (99-107); CREATININE 1.43 MG/DL (0.60-1.10); GLUCOSE 95 MG/DL (70-104); POTASSIUM 4.1 MMOL/L (3.5-5.1); SODIUM 139 MMOL/L (135-145); TOTAL CARBON DIOXIDE 33.7 MMOL/L (24-32); TOTAL PROTEIN 6.8 G/DL (6.4-8.2); eCRCL 51 ML/MIN; eGFR 48 ML/MIN
[2024-09-11 08:35] LABS: BASOPHILS # (AUTO) 0.1 X10'3 (0-0.2); EOSINOPHILS # (AUTO) 0.6 X10'3 (0-0.9); EOSINOPHILS % (AUTO) 6.8 % (0-6); HEMATOCRIT 37.3 % (42.0-52.0); HEMOGLOBIN 12.2 g/dl (14.0-17.9); LYMPHOCYTES # (AUTO) 1.3 X10'3 (1.1-4.8); LYMPHOCYTES % (AUTO) 13.4 % (21-51); MEAN CORPUSCULAR HEMOGLOBIN 28.7 PG (27.0-31.0); MEAN CORPUSCULAR HGB CONC 32.6 g/dL (33.0-36.5); MEAN CORPUSCULAR VOLUME 88.1 FL (78-98); MEAN PLATELET VOLUME 10.6 FL (7.4-10.4); MONOCYTES # (AUTO) 1.3 X10'3 (0-0.9); MONOCYTES % (AUTO) 13.4 % (2-12); NEUTROPHILS # (AUTO) 6.2 X10'3 (1.8-7.7); NEUTROPHILS % (AUTO) 65.4 % (42-75); PLATELET COUNT 278 X10'3 (140-440); RED BLOOD COUNT 4.23 X10'6 (4.70-6.10); RED CELL DISTRIBUTION WIDTH 15.2 % (11.5-14.5); WHITE BLOOD COUNT 9.5 X10'3 (4.5-11.0)
[2024-09-11 09:19] LABS: LARGE PLATELETS FEW; PLATELET ESTIMATE NORMAL
[2024-09-11] MEDS: metoprolol tartrate 25mg tablet NG SCH (10:00)
[2024-09-11] MEDS: lactose-reduced food (Ensure Enlive) - 237ml bottle PO SCH (13:01)
[2024-09-11] MEDS: HYDROcodone/acetaminophen 5mg/325mg tablet PO PRN (20:29)
[2024-09-11] MEDS ORDERED: Neutra Phos packet PO SCH (23:44)
[2024-09-11] MEDS ORDERED: magnesium hydroxide 30ml (MOM) UD suspension PO PRN (23:44)
[2024-09-11] MEDS ORDERED: Neutra Phos packet PO PRN (23:45)
[2024-09-11] MEDS ORDERED: POTASSIUM CHLORIDE 20 MEQ/15 ML oral solution PO PRN ×2 (23:45)
[2024-09-12 02:00] VITALS: BP 138/68; PULSE 68; RESP 18; TEMP 96.8; O2SAT 98
[2024-09-12] MEDS: acetaminophen 325mg tablet PO PRN (06:04)
[2024-09-12 07:00] VITALS: BP 122/48; PULSE 63; RESP 16; TEMP 97.6; O2SAT 96
[2024-09-12 08:00] VITALS: RESP 16; O2SAT 96
[2024-09-12] MEDS: multivitamins, therapeutics tablet PO SCH (08:00)
[2024-09-12] MEDS: thiamine 100mg tablet PO SCH (08:00)
[2024-09-12 08:06] LABS: BASOPHILS # (AUTO) 0.1 X10'3 (0-0.2); EOSINOPHILS # (AUTO) 0.7 X10'3 (0-0.9); EOSINOPHILS % (AUTO) 7.5 % (0-6); HEMATOCRIT 36.7 % (42.0-52.0); HEMOGLOBIN 12.1 g/dl (14.0-17.9); LYMPHOCYTES # (AUTO) 1.3 X10'3 (1.1-4.8); LYMPHOCYTES % (AUTO) 14.7 % (21-51); MEAN CORPUSCULAR HEMOGLOBIN 28.7 PG (27.0-31.0); MEAN CORPUSCULAR VOLUME 87.1 FL (78-98); MEAN PLATELET VOLUME 9.7 FL (7.4-10.4); MONOCYTES # (AUTO) 1.1 X10'3 (0-0.9); NEUTROPHILS # (AUTO) 5.6 X10'3 (1.8-7.7); NEUTROPHILS % (AUTO) 63.8 % (42-75); PLATELET COUNT 250 X10'3 (140-440); RED BLOOD COUNT 4.21 X10'6 (4.70-6.10); RED CELL DISTRIBUTION WIDTH 14.9 % (11.5-14.5); WHITE BLOOD COUNT 8.8 X10'3 (4.5-11.0)
[2024-09-12 08:19] LABS: ALANINE AMINOTRANSFERASE 48 U/L (12-78); ALBUMIN 2.6 G/DL (3.4-5.0); ALBUMIN/GLOBULIN RATIO 0.5 (1.1-1.5); ALKALINE PHOSPHATASE 73 IU/L (46-116); ANION GAP 4 (8-16); ASPARTATE AMINO TRANSFERASE 51 U/L (10-37); BILIRUBIN,TOTAL 0.6 MG/DL (0.1-1.0); BLOOD UREA NITROGEN 19 MG/DL (7-18); BUN/CREATININE RATIO 13.5 (10.0-20.0); CALCIUM 8.4 MG/DL (8.5-10.1); CHLORIDE 102 MMOL/L (99-107); CREATININE 1.41 MG/DL (0.60-1.10); GLUCOSE 99 MG/DL (70-104); POTASSIUM 4.2 MMOL/L (3.5-5.1); SODIUM 138 MMOL/L (135-145); TOTAL PROTEIN 7.5 G/DL (6.4-8.2); eCRCL 51 ML/MIN; eGFR 49 ML/MIN
[2024-09-12] MEDS: losartan 50mg tablet PO SCH (09:00)
[2024-09-12] MEDS: mag hydrox/Alum hydrox/simeth 30ml oral suspension PO PRN (10:21)
[2024-09-12] MEDS: flecainide 50mg tablet PO SCH (10:22)
[2024-09-12] MEDS: amLODIPine 5mg tablet PO SCH (10:25)
[2024-09-12] MEDS: folic acid 1mg tablet PO SCH (10:32)
[2024-09-12] MEDS: atorvastatin 10mg tablet PO SCH (10:33)
[2024-09-12 11:00] VITALS: BP 119/53; PULSE 71; RESP 22; TEMP 97.9; O2SAT 97
== END 2024-09-12 14:10 | disposition left against medical advice (07) | DRG 350 ==
LOC: ER 19:46 → ED HOLD 22:14 → PCU 3S 08-31 12:51
PROVIDERS: ADMIT Internal Medicine Critical Care Medicine; ATTEND Family Medicine
PROC: 0YQ50ZZ Repair Right Inguinal Region, Open Approach (ICD-10-PCS; principal; 2024-08-31 05:53)
PROC: B32T1ZZ Computerized Tomography (CT Scan) of Left Pulmonary Artery using Low Osmolar Contrast (ICD-10-PCS; 2024-09-04)
PROC: B3201ZZ Computerized Tomography (CT Scan) of Thoracic Aorta using Low Osmolar Contrast (ICD-10-PCS; 2024-09-04)
PROC: B32S1ZZ Computerized Tomography (CT Scan) of Right Pulmonary Artery using Low Osmolar Contrast (ICD-10-PCS; 2024-09-04)
DX: K40.30 Unilateral inguinal hernia, with obstruction, without gangrene, not specified as recurrent (principal); E43 Unspecified severe protein-calorie malnutrition; N17.0 Acute kidney failure with tubular necrosis; G92.8 Other toxic encephalopathy; F10.231 Alcohol dependence with withdrawal delirium; I47.10 Supraventricular tachycardia, unspecified; N18.9 Chronic kidney disease, unspecified; Z53.21 Procedure and treatment not carried out due to patient leaving prior to being seen by health care provider; I12.9 Hypertensive chronic kidney disease with stage 1 through stage 4 chronic kidney disease, or unspecified chronic kidney disease; I48.0 Paroxysmal atrial fibrillation; E86.0 Dehydration; Z90.49 Acquired absence of other specified parts of digestive tract; Z88.0 Allergy status to penicillin; Z79.899 Other long term (current) drug therapy; Z68.33 Body mass index [BMI] 33.0-33.9, adult
CPT/HCPCS: 36415; 36600; 70450; 71045; 71275; 74018; 74177; 80053; 80305; 81001; 82140; 82150; 82570; 82803; 82948; 83605; 83690; 83735; 83880; 83930; 83935; 84100; 84134; 84145; 84295; 84300; 84443; 84484; 85008; 85018; 85025; 85610; 86592; 86703; 86885; 86900; 86901; 87070; 87075; 87077; 87081; 87186; 87207; 88302; 92508; 92616; 93005; 93306; 94640; 94760; 97110; 97161; 97530; 99291; A4615; A4618; A4620; A4649; A5200; A6212; A6213; A6250; A6253; A6258; A6449; A6590; A7000; C1758; G0378; J0282; J0360; J0692; J0694; J0780; J1171; J1630; J1644; J1650; J2060; J2175; J2270; J2405; J2704; J2710; J2765; J3010; J3411; J3490; J7030; J7040; J7070; J7120; Q9967